=== PATIENT | male | born 1955 | race Hispanic/Latino ===

== ENCOUNTER 2016-09-20 19:49 | Inpatient (IN) | payer OTHER ==
[~2016-09-20] VITALS: Ht 165.1 cm; Wt 83.1 kg
[2016-09-20] MEDS ORDERED: ONDANSETRON 4MG/2ML VIAL (J2405) IV ONE (20:15)
[2016-09-20] MEDS ORDERED: NS 1,000 ML IV ONE (20:15)
[2016-09-20] MEDS ORDERED: ALBU17IN INH (20:24)
[2016-09-20] MEDS ORDERED: NAPR500T2 PO (20:24)
[2016-09-20] MEDS ORDERED: CARV6.25 PO (20:24)
[2016-09-20] MEDS ORDERED: LOSA100T36 PO (20:24)
[2016-09-20] MEDS ORDERED: FLOM5CAP PO (20:24)
[2016-09-20] MEDS ORDERED: toradol IM (20:24)
[2016-09-20] MEDS ORDERED: ATOR1TAB19 PO (20:24)
[2016-09-20] MEDS ORDERED: HYDR25TAB PO (20:24)
[2016-09-20] MEDS ORDERED: ISOS10TAB PO (20:24)
[2016-09-20] MEDS ORDERED: OMEP20TA PO (20:24)
[2016-09-20] MEDS: MORPHINE 4 MG/ML 1ML SYRINGE IV PRN ×2 (20:43→21:30)
[2016-09-20 20:47] LABS: BASO % 0.5 % (0.0-1.0); EOS # 0.2 K/mm3 (0.0-0.50); EOS % 3.9 % (0.0-3.0); LARGE UNSTAINED CELL # 0.2 K/mm3 (0.0-0.4); LARGE UNSTAINED CELL % 3.1 % (0.0-4.0); LYMPH # 1.6 K/mm3 (1.5-4.5); LYMPH % 30.5 % (24.0-44.0); MEAN CORPUSCULAR HEMOGLOBIN 33.1 pg (27.0-33.0); MEAN CORPUSCULAR HGB CONC 35.7 g/dl (32.0-36.5); MEAN CORPUSCULAR VOLUME 92.7 fl (80.0-96.0); MONO # 0.4 K/mm3 (0.0-0.8); MONO % 7.9 % (0.0-5.0); NEUTROPHILS # 2.5 K/mm3 (1.8-7.7); NEUTROPHILS % 54.1 % (36.0-66.0); RED CELL DISTRIBUTION WIDTH 12.8 % (11.5-14.5); WHITE BLOOD COUNT 4.7 K/mm3 (4.0-10.0)
[2016-09-20 21:08] LABS: PLATELET COUNT, AUTOMATED 68 k/mm3 (150-450)
[2016-09-20 21:13] LABS: ALBUMIN 3.3 GM/DL (3.2-5.2); ALBUMIN/GLOBULIN RATIO 0.87 (1.00-1.93); BILIRUBIN,DIRECT 0.3 MG/DL (0.0-0.2); BILIRUBIN,TOTAL 0.8 MG/DL (0.2-1.0); CREATININE FOR GFR 1.48 MG/DL (0.70-1.30); GLOMERULAR FILTRATION RATE 51.4 (>49); POTASSIUM SERUM 3.7 MEQ/L (3.5-5.1); TOTAL PROTEIN 7.1 GM/DL (6.4-8.2)
--- NOTE | 2016-09-20 22:00 | REPUSA ---
CT of the abdomen and pelvis without contrast Clinical statement: Pain. Technique: Multiple axial CT images were obtained from the base of the lungs to the floor of the pelv is utilizing 5 mm axial slices without administration of contrast. Coronal and sagittal reconstructio ns were also obtained. No comparison is available. Findings: Chest: The visualized lung bases are clear. Abdomen: The kidneys are normal in size bilaterally. There is extensive bilateral nephrolithiasis, wo rse on the left with stones measuring up to 1 cm in diameter. There is moderate left-sided hydronephr osis caused by 8mm obstructing stone in the distal left ureter, just proximal to the left ureterovesi adam junction. There is mild right-sided hydronephrosis caused by 5 mm obstructing stone at the right ureterovesical junction. The liver, spleen, pancreas, gallbladder and adrenal glands are unremarkable . The aorta demonstrates normal caliber and contour. There is no abdominal lymphadenopathy or ascites . Pelvis: The bowel is unremarkable, with no obstructive or inflammatory changes. The appendix is duran l. The urinary bladder is within normal limits. There is no pelvic lymphadenopathy or ascites. The ot her pelvic structures appear unremarkable. Bones: There are no suspicious osseous abnormalities seen. Minimal degenerative disc disease is noted at T12/L1. Impression: 1. Moderate left-sided hydronephrosis with 8mm obstructing stone in the distal left ureter. 2. Mild right-sided hydronephrosis with 5 mm obstructing stone at the right ureterovesical junction. 3. Extensive bilateral nephrolithiasis, worse on the left. 4. No obstructive or inflammatory bowel changes.
[2016-09-20] MEDS ORDERED: MORPHINE 4 MG/ML 1ML SYRINGE IV PRN (23:00)
[2016-09-21] MEDS ORDERED: KETO30IN4 IM (00:09)
[2016-09-21 00:16] LABS: REASON FOR REVIEW COMPREHENSIVE REVIEW
[2016-09-21 00:19] LABS: INR 1.06
[2016-09-21 00:32] LABS: PERCENT SATURATION 28.3 % (19.7-37.4)
[2016-09-21] MEDS: HYDROmorphone HCL 1 MG/ML SYRINGE (J1170) IV PRN ×2 (00:32→01:07)
[2016-09-21] MEDS: TAMSULOSIN 0.4 MG CAP PO SCH ×3 (00:32→20:52)
[2016-09-21] MEDS ORDERED: ONDANSETRON 4MG/2ML VIAL (J2405) IV PRN (00:45)
[2016-09-21] MEDS ORDERED: ACETAMINOPHEN TAB 650MG DOSE (2X325MG) PO PRN (00:45)
[2016-09-21] MEDS ORDERED: IPRATROPIUM 0.5MG/ALBUTEROL 2.5MG INH SOL UD 3ML (DUONEB)(J7620) NEB PRN (00:45)
[2016-09-21] MEDS ORDERED: ACETAMINOPHEN 650 MG SUPP PR PRN (00:45)
[2016-09-21] MEDS: CARVedilol 6.25 MG TAB PO SCH ×4 (01:06→20:58)
[2016-09-21] MEDS: NS 1,000 ML IV SCH ×3 (01:07→20:52)
[2016-09-21 02:15] VITALS: BP 180/103
[2016-09-21] MEDS: MORPHINE 4 MG/ML 1ML SYRINGE IV PRN ×4 (02:36→20:53)
[2016-09-21] MEDS: ATORVASTATIN 10 MG TAB PO SCH ×2 (02:54→20:53)
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
[2016-09-21 06:00] VITALS: BP 124/77
[2016-09-21 06:49] LABS: ANION GAP 6 MEQ/L (8-16); BASO % 0.5 % (0.0-1.0); BLOOD UREA NITROGEN 28 MG/DL (7-18); CALCIUM LEVEL 8.3 MG/DL (8.8-10.2); CARBON DIOXIDE LEVEL 28 MEQ/L (21-32); CHLORIDE LEVEL 107 MEQ/L (98-107); CREATININE FOR GFR 1.18 MG/DL (0.70-1.30); EOS # 0.1 K/mm3 (0.0-0.50); EOS % 3.2 % (0.0-3.0); GLOMERULAR FILTRATION RATE > 60.0 (>49); GLUCOSE, FASTING 88 MG/DL (80-110); LARGE UNSTAINED CELL # 0.2 K/mm3 (0.0-0.4); LARGE UNSTAINED CELL % 3.7 % (0.0-4.0); LYMPH # 1.5 K/mm3 (1.5-4.5); LYMPH % 33.8 % (24.0-44.0); MEAN CORPUSCULAR HEMOGLOBIN 32.9 pg (27.0-33.0); MEAN CORPUSCULAR HGB CONC 34.8 g/dl (32.0-36.5); MEAN CORPUSCULAR VOLUME 94.5 fl (80.0-96.0); MONO # 0.3 K/mm3 (0.0-0.8); MONO % 7.1 % (0.0-5.0); NEUTROPHILS # 2.2 K/mm3 (1.8-7.7); NEUTROPHILS % 51.7 % (36.0-66.0); POTASSIUM SERUM 3.7 MEQ/L (3.5-5.1); SODIUM LEVEL 141 MEQ/L (136-145); WHITE BLOOD COUNT 4.2 K/mm3 (4.0-10.0)
[2016-09-21 06:53] LABS: PLATELET COUNT, AUTOMATED 59 k/mm3 (150-450)
--- NOTE | 2016-09-21 07:17 | ECGEPIP ---
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
[2016-09-21] MEDS: IPRATROPIUM 0.5MG/ALBUTEROL 2.5MG INH SOL UD 3ML (DUONEB)(J7620) NEB SCH ×3 (07:44→23:09)
[2016-09-21] MEDS: OMEPRAZOLE 20 MG CAP PO SCH (08:18)
[2016-09-21] MEDS ORDERED: amLODIPine 5 MG TAB PO SCH (09:00)
[2016-09-21] MEDS ORDERED: ISOSORBIDE MONONITRATE 10MG TABLET PO SCH (09:00)
[2016-09-21] MEDS ORDERED: TAMSULOSIN 0.4 MG CAP PO SCH (09:00)
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
--- NOTE | 2016-09-21 11:31 | IPNPDOC ---
Subjective Date Seen The patient was seen on 09/21/16. Subjective Chief Complaint/HPI The patient is a 60-year-old male admitted with a reason for visit of Bilat Ureleral Obstruction. Events since last encounter pt seen and examined, still complaining of pain but is controlled with pain medication, hernandez in place, doesn't appear bloody, no fevers overnight Constitutional: Denies: Chills, Fever, Night Sweats Objective Physical Examination General Exam: Positive: Alert, No Acute Distress Neck Exam: Positive: Supple, Negative: JVD, thyromegaly Chest Exam: Positive: Clear to auscultation, Normal air movement Heart Exam: Positive: Normal S1, Normal S2, Rate Normal, Regular Rhythm, Negative: Murmurs, Rubs Abdomen Exam: Positive: Normal bowel sounds, Other (hernandez in place), Soft, Negative: Hepatospenomegaly, Tenderness Extremity Exam: Positive: Normal pulses, Negative: Clubbing, Cyanosis, Edema Neuro Exam: Positive: Cranial Nerves 3-12 NL, Normal Speech Psych Exam: Positive: Mental status NL, Mood NL, Oriented x 3 Assessment /Plan Problems (1) Ureterolithiasis Status: Acute Problem Text: * pt has b/l stones with hydronephrosis * continue IVF 100cc/hr * continue flomax * Urology consulted, will continue hernandez cath for another day, if stones do not pass pt will be taken to the OR tomorrow * no fevers or chills, no leukocytosis will not start pt on antibiotics now (2) Bilateral ureteral obstruction Status: Acute Problem Text: * secondary to stones (3) Acute kidney injury Status: Resolved Problem Text: * 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 * continue IV fluids (4) HLD (hyperlipidemia) Status: Chronic Response to Treatment: Stable Problem Text: * continue lipitor (5) GERD (gastroesophageal reflux disease) Status: Chronic Response to Treatment: Stable Problem Text: * prilosec (6) History of hepatitis C Status: Chronic Response to Treatment: Stable Problem Text: * s/p treatment (7) Asthma Status: Chronic Response to Treatment: Stable (8) History of DE (myocardial infarction) Status: Chronic Problem Text: * s/p DE 15 years ago * continue coreg, lipitor Plan/VTE VTE Prophylaxis Ordered?: Yes Plan/Urinary Catheter Reason for insertion/continuin: Critical Pt monitoring VS, I&O, 24H, Fishbonhector Vital Signs/I&O Vital Signs Date Time Temp Pulse Resp B/P Pulse Ox O2 Delivery O2 Flow Rate FiO2 09/21/16 08:28 14 09/21/16 07:47 57 09/21/16 06:00 98.8 124/77 96 Room Air I&O- Last 24 Hours up to 6 AM 09/21/16 06:00 Intake Total 1000 ml Balance 1000 ml Laboratory Data 24H LABS Laboratory Tests 2 09/20/16 20:36: Activated Partial Thromboplast Time 35.8, Differential Pathologist's Review COMPREHENSIVE REVIEW, Differential Slide Review Report, Peripheral Blood Smear Path Consult PERIPHERAL SMEAR, Prothromb Time International Ratio 1.06, Prothrombin Time 13.9 09/20/16 20:37: Aspartate Amino Transf (AST/SGOT) 26, Alanine Aminotransferase (ALT/SGPT) 31, Gamma Glutamyl Transpeptidase 101H, Alkaline Phosphatase 129H, Total Bilirubin 0.8, Direct Bilirubin 0.3H, Albumin 3.3, Albumin/Globulin Ratio 0.87L, Anion Gap 8, White Blood Count 4.7, Red Blood Count 3.89L, Hemoglobin 12.9L, Hematocrit 36.0L, Mean Corpuscular Volume 92.7, Mean Corpuscular Hemoglobin 33.1H, Mean Corpuscular Hemoglobin Concent 35.7, Red Cell Distribution Width 12.8, Platelet Count 68L, Neutrophils (%) (Auto) 54.1, Lymphocytes (%) (Auto) 30.5, Monocytes (%) (Auto) 7.9H, Eosinophils (%) (Auto) 3.9H, Basophils (%) ( Auto) 0.5, Neutrophils # (Auto) 2.5, Lymphocytes # (Auto) 1.6, Monocytes # (Auto ) 0.4, Eosinophils # (Auto) 0.2, Basophils # (Auto) 0.0, Calcium Level 9.0, Creatine Kinase MB 2.7, Creatine Kinase MB Relative Index 2.96, Ferritin 61, Glomerular Filtration Rate 51.4, Iron Level 89, Large Unclassified Cells # 0.2, Large Unclassified Cells % 3.1, Lipase 284, Total Creatine Kinase 91, Total Iron Binding Capacity 314, Total Protein 7.1, Transferrin % Saturation 28.3, Troponin I 0.02 09/20/16 20:41: Urine Amorphous Sediment , Urine Appearance CLEAR, Urine Color YELLOW, Urine pH 6.0, Urine Specific [place] 1.008, Urine Protein NEGATIVE, Urine Glucose (UA) NEGATIVE, Urine Ketones NEGATIVE, Urine Urobilinogen 0.2, Urine Bilirubin NEGATIVE, Urine Leukocyte Esterase 1+H, Urine Bacteria (Auto) NEGATIVE, Urine Blood 2+H, Urine Calcium Carbonate Cryst(Auto) , Urine Calcium Oxalate Cryst ( Auto) , Urine Calcium Phosphate [place] (Auto) , Urine Cellular Casts , Urine Cystine Crystals , Urine Granular Casts (Auto) , Urine Hyaline Casts (Auto) 0, Urine Leucine Crystals , Urine Mucus (Auto) , Urine Nitrite NEGATIVE, Urine Oval Fat Bodies (Auto) , Urine RBC (Auto) 12H, Urine Random Creatinine 69.2, Urine Random Sodium 45, Urine Renal Epithelial Cells , Urine Sperm (Auto) , Urine Squamous Epithelial Cells 0, Urine Transitional Epithelial Cells , Urine Trichomonas (Auto) , Urine Triple Phosphate Cryst (Auto) , Urine Tyrosine Crystals , Urine Uric Acid Crystals (Auto) , Urine WBC (Auto) 13H, Urine Waxy Casts (Auto) , Urine Yeast-Like Cells (Auto) 09/21/16 06:14: Anion Gap 6L, White Blood Count 4.2, Red Blood Count 3.47L, Hemoglobin 11.4L, Hematocrit 32.8L, Mean Corpuscular Volume 94.5, Mean Corpuscular Hemoglobin 32.9 , Mean Corpuscular Hemoglobin Concent 34.8, Red Cell Distribution Width 13.0, Platelet Count 59L, Neutrophils (%) (Auto) 51.7, Lymphocytes (%) (Auto) 33.8, Monocytes (%) (Auto) 7.1H, Eosinophils (%) (Auto) 3.2H, Basophils (%) (Auto) 0.5 , Neutrophils # (Auto) 2.2, Lymphocytes # (Auto) 1.5, Monocytes # (Auto) 0.3, Eosinophils # (Auto) 0.1, Basophils # (Auto) 0.0, Calcium Level 8.3L, Glomerular Filtration Rate > 60.0, Large Unclassified Cells # 0.2, Large Unclassified Cells % 3.7, Blood Urea Nitrogen 28H, Creatinine 1.18, Sodium Level 141, Potassium Level 3.7, Chloride Level 107, Carbon Dioxide Level 28 CBC/BMP Laboratory Tests 09/20/16 20:37 Red Blood Count 3.89 L, Mean Corpuscular Volume 92.7, Mean Corpuscular Hemoglobin 33.1 H, Mean Corpuscular Hemoglobin Concent 35.7, Red Cell Distribution Width 12.8, Neutrophils (%) (Auto) 54.1, Lymphocytes (%) (Auto) 30.5, Monocytes (%) (Auto) 7.9 H, Eosinophils (%) (Auto) 3.9 H, Basophils (%) ( Auto) 0.5, Neutrophils # (Auto) 2.5, Lymphocytes # (Auto) 1.6, Monocytes # (Auto ) 0.4, Eosinophils # (Auto) 0.2, Basophils # (Auto) 0.0 09/21/16 06:14 Red Blood Count 3.47 L, Mean Corpuscular Volume 94.5, Mean Corpuscular Hemoglobin 32.9, Mean Corpuscular Hemoglobin Concent 34.8, Red Cell Distribution Width 13.0, Neutrophils (%) (Auto) 51.7, Lymphocytes (%) (Auto) 33.8, Monocytes (%) (Auto) 7.1 H, Eosinophils (%) (Auto) 3.2 H, Basophils (%) ( Auto) 0.5, Neutrophils # (Auto) 2.2, Lymphocytes # (Auto) 1.5, Monocytes # (Auto ) 0.3, Eosinophils # (Auto) 0.1, Basophils # (Auto) 0.0, Calcium Level 8.3 L Microbiology Microbiology 09/20/16 Urine Culture, Received Pending WILFRID PATEL DO Sep 21, 2016 11:31
[2016-09-21] MEDS ORDERED: PERCOCET 5MG/325MG TAB PO PRN (11:45)
[2016-09-21 14:00] VITALS: BP 220/112
[2016-09-21 19:15] VITALS: BP 146/84
[2016-09-21 22:00] VITALS: BP 140/98
[2016-09-22] MEDS: MORPHINE 4 MG/ML 1ML SYRINGE IV PRN ×3 (00:51→11:33)
[2016-09-22 06:00] VITALS: BP 160/110
[2016-09-22] MEDS: IPRATROPIUM 0.5MG/ALBUTEROL 2.5MG INH SOL UD 3ML (DUONEB)(J7620) NEB SCH ×2 (07:14→15:15)
[2016-09-22 07:27] LABS: ANION GAP 6 MEQ/L (8-16); BLOOD UREA NITROGEN 22 MG/DL (7-18); CALCIUM LEVEL 8.2 MG/DL (8.8-10.2); CARBON DIOXIDE LEVEL 29 MEQ/L (21-32); CHLORIDE LEVEL 108 MEQ/L (98-107); CREATININE FOR GFR 1.16 MG/DL (0.70-1.30); GLOMERULAR FILTRATION RATE > 60.0 (>49); GLUCOSE, FASTING 97 MG/DL (80-110); POTASSIUM SERUM 3.5 MEQ/L (3.5-5.1); SODIUM LEVEL 143 MEQ/L (136-145)
[2016-09-22 07:47] LABS: BASO % 0.4 % (0.0-1.0); EOS # 0.2 K/mm3 (0.0-0.50); EOS % 3.3 % (0.0-3.0); LARGE UNSTAINED CELL # 0.1 K/mm3 (0.0-0.4); LARGE UNSTAINED CELL % 2.6 % (0.0-4.0); LYMPH # 1.3 K/mm3 (1.5-4.5); LYMPH % 22.8 % (24.0-44.0); MEAN CORPUSCULAR HEMOGLOBIN 33.7 pg (27.0-33.0); MEAN CORPUSCULAR HGB CONC 36.2 g/dl (32.0-36.5); MONO # 0.5 K/mm3 (0.0-0.8); MONO % 8.9 % (0.0-5.0); NEUTROPHILS # 3.2 K/mm3 (1.8-7.7); PLATELET COUNT, AUTOMATED 65 k/mm3 (150-450); RED CELL DISTRIBUTION WIDTH 12.8 % (11.5-14.5); WHITE BLOOD COUNT 5.2 K/mm3 (4.0-10.0)
[2016-09-22 09:34] LABS: FOLATE 19.8 NG/ML (>5.4)
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
[2016-09-22] MEDS: NS 1,000 ML IV SCH ×2 (11:20→16:22)
[2016-09-22 11:28] VITALS: BP 168/112
[2016-09-22] MEDS: CARVedilol 6.25 MG TAB PO SCH (11:28)
[2016-09-22] MEDS: OMEPRAZOLE 20 MG CAP PO SCH (11:28)
[2016-09-22] MEDS: TAMSULOSIN 0.4 MG CAP PO SCH (11:29)
[2016-09-22 14:00] VITALS: BP 188/92
[2016-09-22] MEDS ORDERED: MAPA325T2 PO (14:58)
--- NOTE | 2016-09-22 15:27 | IPN ---
DATE: 09/22/2016 The patient is lying comfortably in the hospital bed. It sounds like he did pass two stones last night. He is now still having some mild right lower quadrant pain which is most likely secondary to inflammation from the stones. PHYSICAL EXAMINATION: His blood pressure is 160/100 and his respiratory rate is 13. His pulse oximetry 96% and his temperature is 100.1 now and it was 98.9 last night. He has no costovertebral angle (CVA) tenderness and his abdomen is soft and nontender without any rebound, guarding or masses. His extremities show no calf tenderness, cyanosis or edema. LABORATORY DATA: His white blood count is 5.2, hemoglobin and hematocrit is 13/35.8. His creatinine is 1.16 and his BUN is 22. His microscopic urinanalysis had shown 13 white blood cells and 12 red blood cells and the urine culture from 09/20/2016 showed no growth. A KUB was done on 09/22/2016 and I do not see any stones along the right ureter or in the right kidney. On the left side, there is the nonobstructing stones seen up in the kidney and there are at least nine of them seen. The distal stone is seen on the left-hand side but this is not causing any significant pain at this time. IMPRESSION: 1. Patient who had severe right flank pain radiating to the groin, who had a 5 mm distal right ureteral stone which he passed last night along with a smaller stone, still with some mild right lower quadrant pain. 2. 2 mm distal left ureteral stones not causing any pain or significant issues at this time. 3. Longstanding history of significant nephrolithiasis in a patient who has passed over 500 stones. PLAN: 1. The patient can be discharged from a urologic standpoint and I recommend followup in the clinic in approximately three weeks with a renal ultrasound prior to make sure that there is no further left hydroureteronephrosis. 2. I recommend a 24-hour stone risk profile as an outpatient that we can followup in the office to try to figure out how to prevent this patient from having stones in the future.
[2016-09-23] MEDS ORDERED: INFLUENZA QUADRIVALENT PF VACCINE 0.5ML SYRINGE/VIAL (90686) IM ONE (09:00)
== END 2016-09-22 17:30 | disposition home or self-care (01) | DRG 465 ==
LOC: M ED 21:15 → M ED INP 09-21 00:45 → M MS5PR 09-21 02:15
PROVIDERS: ADMIT Internal Medicine; ATTEND Internal Medicine
DX: N20.1 Calculus of ureter (principal); D69.6 Thrombocytopenia, unspecified; N13.30 Unspecified hydronephrosis; E78.5 Hyperlipidemia, unspecified; K21.9 Gastro-esophageal reflux disease without esophagitis; J45.909 Unspecified asthma, uncomplicated; I25.10 Atherosclerotic heart disease of native coronary artery without angina pectoris; I25.2 Old myocardial infarction; I10 Essential (primary) hypertension; Z79.899 Other long term (current) drug therapy; D64.9 Anemia, unspecified

== ENCOUNTER 2016-10-29 12:49 | Emergency (ER) | payer OTHER ==
[~2016-10-29] VITALS: Ht 154.9 cm; Wt 79.4 kg
[2016-10-29 12:50] VITALS: BP 158/91
== END 2016-10-29 13:08 | disposition left against medical advice (07) ==
LOC: M ED 13:06
DX: Z53.21 Procedure and treatment not carried out due to patient leaving prior to being seen by health care provider (principal)

== ENCOUNTER → 2016-10-29 | Outpatient (CLI) | payer OTHER ==
[~2016-10-29] MED LIST: ALBU17IN INH; ATOR1TAB19 PO; CARV6.25 PO; FLOM5CAP PO; HYDR25TAB PO; ISOS10TAB PO; KETO30IN4 IM; LOSA100T36 PO; MAPA325T2 PO; NAPR500T2 PO; OMEP20TA PO; toradol IM
--- NOTE | 2016-10-29 14:11 | REP ---
Duplex extremity venous ultrasound: Right lower extremity. History: Right lower extremity edema. Elevated D-dimer. The patient reports of the presence of right lower extremity arterial stents. Findings: The deep veins are anechoic and fully compressible from the groin to the popliteal fossa in the right lower extremity. Color flow imaging is homogeneous. Spectral Doppler interrogation demonstrates intact respiratory variation in flow and normal manual augmentation of flow. There is no evidence of deep vein thrombosis. A arterial stent is visualized in the right mid to superficial femoral artery. Impression: Negative right lower extremity duplex venous ultrasound. No evidence of deep vein thrombosis. Signed by Tomy Patel MD 10/29/2016 02:03 P
== END ==
LOC: M RAD 13:11
PROVIDERS: ATTEND Thoracic Surgery (Cardiothoracic Vascular Surgery)
DX: R60.0 Localized edema (principal)